=== PATIENT | male | born 1985 | race Caucasian/White ===

== ENCOUNTER 2020-01-15 20:11 | Emergency (ER) | payer OTHER ==
[2020-01-15] MEDS ORDERED: Ondansetron ODT 4 MG TAB ONE (20:55)
[2020-01-15] MEDS ORDERED: diphenhydrAMINE 25 MG CAP ONE (20:55)
[2020-01-15] MEDS ORDERED: predniSONE 20 MG TAB ONE (20:55)
== END 2020-01-15 21:42 ==
LOC: ERS 20:11
DX: T78.1XXA Other adverse food reactions, not elsewhere classified, initial encounter (principal); L27.2 Dermatitis due to ingested food; R11.0 Nausea; J45.909 Unspecified asthma, uncomplicated; I10 Essential (primary) hypertension; F41.9 Anxiety disorder, unspecified; F31.9 Bipolar disorder, unspecified; Z87.891 Personal history of nicotine dependence; Z79.899 Other long term (current) drug therapy
CPT/HCPCS: 99283; J7512; Q0162; Q0163

== ENCOUNTER 2020-03-16 21:11 | Emergency (ER) | payer OTHER ==
[2020-03-16] MEDS ORDERED: Famotidine 20 MG TAB ONE (22:15)
[2020-03-16] MEDS ORDERED: hydrOXYzine 25 MG TAB ONE (22:16)
[2020-03-16] MEDS ORDERED: Dexamethasone 4 mg/ml Vial ONE (22:19)
== END 2020-03-16 22:43 | disposition home or self-care (01) ==
LOC: ERS 21:11 → EEVIPCON 21:11 → ERS 22:43
DX: L50.9 Urticaria, unspecified (principal); F31.9 Bipolar disorder, unspecified; F41.9 Anxiety disorder, unspecified; I10 Essential (primary) hypertension; J45.909 Unspecified asthma, uncomplicated; Z87.891 Personal history of nicotine dependence; Z79.899 Other long term (current) drug therapy
CPT/HCPCS: 96372; 99283; J1100

== ENCOUNTER 2020-04-28 21:24 | Emergency (ER) | payer OTHER ==
[2020-04-28] MEDS ORDERED: Ondansetron ODT 4 MG TAB ONE (22:29)
[2020-04-28] MEDS ORDERED: Acetaminophen 500 MG TAB ONE (22:29)
[2020-04-29 14:50] LABS: SARS-CoV-2 MS2 Positive; SARS-CoV-2 N Gene Positive; SARS-CoV-2 S Gene Positive; SARS-CoV-2 orf1ab Positive
== END 2020-04-28 22:25 ==
LOC: ERS 21:24
DX: U07.1 COVID-19 (principal); J45.909 Unspecified asthma, uncomplicated; I10 Essential (primary) hypertension; F41.9 Anxiety disorder, unspecified; F31.9 Bipolar disorder, unspecified; Z87.891 Personal history of nicotine dependence; Z79.899 Other long term (current) drug therapy
CPT/HCPCS: 87635; 99283; Q0162; U0003